=== PATIENT | male | born 2000 | race Caucasian/White ===

== ENCOUNTER 2019-05-10 16:43 | Outpatient (CLI) | payer OTHER, SELFPAY | END 2019-05-10 16:44 | disposition home or self-care (01) | LOC: SPT 16:44 | PROVIDERS: PCP Family Medicine; Visit Provider Podiatrist Foot & Ankle Surgery | DX: M25.871 Other specified joint disorders, right ankle and foot (principal) | CPT/HCPCS: L4361 ==